=== PATIENT | male | born 1960 | race Caucasian/White ===

== ENCOUNTER 2018-06-08 11:15 | Outpatient (RCR) | payer OTHER, SELFPAY ==
--- NOTE | 2018-04-13 16:39 | PT.OIE ---
Current Diagnoses Low back pain (04/13/18) Abnormal posture (04/13/18) Weakness (04/13/18) Provider Visit Care Team Role Provider Type Tushar Luz MD Family Provider Non-Staff Primary Care Provider Specialty: Medical Address: [address] [place] [address], [address], [place], [address] Fax: Email: Rui Bowens MD Attending Provider Non-Staff Specialty: Family Practice Address: [address] [place] [address], [phone] Email: Physical Therapy Initial Evaluation PT-OP-A Visit Information Start: 04/13/18 07:28 Freq: Status: Active Protocol: Document 04/13/18 09:05 [facility] (Rec: 04/13/18 09:56 [facility] [id number]) Out-Patient Physical Therapy Visit Information Visit Information Visit Type Initial Evaluation Visit Note 6 visits Visit Start Time 09:05 Visit Stop Time 10:05 Total Visit Minutes 60 Visit Number 1/6 Number of ENTRY LEVEL ELECTRICAL ENGINEER Visits 0 PT-OP-B Current Condition Start: 04/13/18 07:28 Freq: Status: Active Protocol: Document 04/13/18 09:05 [facility] (Rec: 04/13/18 09:56 [facility] [id number]) Current Condition History of Current Condition Onset Date August Current Complaints LBP History of Current Condition Pt reports L SI pain that started when fishing in August. 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 He has history of LBP. Treatment Goals Patient/Caregiver Goals Wants to try snowboarding PT-OP-C Subjective Start: 04/13/18 07:28 Freq: Status: Active Protocol: Document 04/13/18 09:05 [facility] (Rec: 04/13/18 09:56 [facility] [id number]) Patient Questionnaires Oswestry Low Back Index Oswestry Score 44 Oswestry Impairment 40 to 59% Impaired (Score 40- 59) OP-PT Pain Assessment Location back Pain Location Details L SI Intensity 6 Scale Used Numeric (1 - 10) Description- Other irritating Other Pain Aggravating Factors roll over, turning certain ways, bending over and standing back up Other Pain Alleviating Factors shotgun & pelvis alignment exercise PT-OP-F Manual Assessment Start: 04/13/18 07:28 Freq: Status: Active Protocol: Document 04/13/18 09:05 [facility] (Rec: 04/13/18 09:56 [facility] [id number]) Manual Assessments Joint Mobility Assessment Joint Mobility Assessment elevated L & equal trochanters PT-OP-G Mobility & Gait Start: 04/13/18 07:28 Freq: Status: Active Protocol: Document 04/13/18 09:05 [facility] (Rec: 04/13/18 09:56 [facility] [id number]) OP Gait Assessment Comments Gait Comments leg walker with dec pelvis motion PT-OP-J Posture/Palpation/Skin Start: 04/13/18 07:28 Freq: Status: Active Protocol: Document 04/13/18 09:05 [facility] (Rec: 04/13/18 09:56 [facility] [id number]) Posture Evaluation Shanice Postural Classification System Shanice Postural Classifications Vertical/Posterior Vertebral Compression Test 1 Elbow Flexion Test 4 Lumbar Protective Mechanism Left AP 1 Lumbar Protective Mechanism Right AP 1 Lumbar Protective Mechanism Left PA 4 Lumbar Protective Mechanism Right PA 2 Leg Swing Left Hard End Feel Pain Leg Swing Right WNL PT-OP-K Range of Motion Start: 04/13/18 07:28 Freq: Status: Active Protocol: Document 04/13/18 09:05 [facility] (Rec: 04/13/18 09:56 [facility] [id number]) Lumbar Spine Range of Motion Lumbar Spine Active Degrees Flexion 40 Extension 30 Lateral Flexion Left 25 Lateral Flexion Right 22 Comments pain with SB PT-OP-L Special Tests Start: 04/13/18 07:28 Freq: Status: Active Protocol: Document 04/13/18 09:05 [facility] (Rec: 04/13/18 09:56 [facility] [id number]) Special Tests Lumbar Spine Special Tests Other- 1 Test Results leg length Comments supine equal; seated RLE longer Straight Leg Raise Test Results postive L; R neg PT-OP-M Strength Start: 04/13/18 07:28 Freq: Status: Active Protocol: Document 04/13/18 09:05 [facility] (Rec: 04/13/18 09:56 [facility] [id number]) Hip Strength Hip Manual Muscle Testing Right Flexion (L2) 5 Normal Extension (S1) 5 Normal Abduction 5 Normal External Rotation 5 Normal Internal Rotation 5 Normal Comments pain with ext Left Flexion (L2) 5 Normal Extension (S1) 5 Normal Adduction 5 Normal External Rotation 5 Normal Internal Rotation 5 Normal Comments pain IR & ext PT-OP-Q Treatments Start: 04/13/18 07:28 Freq: Status: Active Protocol: Document 04/13/18 09:05 [facility] (Rec: 04/13/18 09:56 [facility] [id number]) Therapeutic Exercises Supine Exercises abdominal exercises Supine Exercise Name abdominal series: flex & diagonal Side bilateral Standing Exercises HS stretch Standing Exercise Name on chair Side bilateral PT-OP-R Modalities Start: 04/13/18 07:28 Freq: Status: Active Protocol: Document 04/13/18 09:05 [facility] (Rec: 04/13/18 09:57 [facility] [id number]) Hot Pack/Cold Pack Treatment lumbar Location lumbar Patient Position Hooklying Treatment Duration (minutes) 15 PT-OP-T Assessment and Plan Start: 04/13/18 07:28 Freq: Status: Active Protocol: Document 04/13/18 09:05 [facility] (Rec: 04/13/18 16:38 [facility] [id number]) Physical Therapy Assessment Rehab Potential Rehabilitation Potential Good Evaluation Complexity Number of Personal Factors/Comorbidities 1-2 Number of Body Systems Impaired 4 or More Clinical Presentation at Evaluation Stable Impairments Impairments Activity Tolerance Balance Functional Activities Functional Mobility Gait Pain Posture ROM Soft Tissue Mobility Strength Goals mobility Impairment mobility Short Term Goal (STG) Pt will be able to do bed mobility without pain and sleep without pain. STG Duration 05/14/18 [facility] Goal (LTG) Pt will be able to ambulate without inc pain with appropriate pelvis motion. LTG Duration 06/14/18 pain Impairment pain Short Term Goal (STG) Pt will report pain about 3/10 on average. STG Duration 05/14/18 [facility] Goal (LTG) Pt will report no more than 1/ 10 pain with all typical activities. LTG Duration 06/14/18 posture Impairment posture Short Term Goal (STG) Pt will present with good posture without cueing STG Duration 05/14/18 [facility] Goal (LTG) Pt will score 5/5 on EFT, VCT & LPM in order to demonstrate improved core stability. LTG Duration 06/14/18 Assessment Summary Assessment Pt presents with L SI pain likely due to repetive rotation that is required when he is fishing. Pt has impaired posture & SI dysfunction with dec core control and would benefit from skilled PT to improve his postural stability and strength. Physical Therapy Plan Frequency and Duration Frequency of Treatment 2x/Week Duration of Treatment 2 months Plan of Care Start Date 04/13/18 Plan of Care End Date 06/14/18 Therapeutic Interventions Therapeutic Interventions Aquatic Therapy Balance Training Gait Training Home Exercise Program Joint Mobilizations Manual Therapy Neuromuscular Re-education Patient/Caregiver Education Self-Care/Home Management Soft Tissue Mobilization Taping Therapeutic Activities Therapeutic Exercises Modalities Cold Pack/Ice Massage Electric Stimulation Hot Packs Traction- Mechanical Ultrasound Next Visit Focus/Plan Next Note Type Treatment Note Next Visit Plan hip, sacrum & innominate mobilizations, advance core
--- NOTE | 2018-04-13 16:39 | PT.OPPOC ---
Current Diagnoses Low back pain (04/13/18) Abnormal posture (04/13/18) Weakness (04/13/18) Provider Visit Care Team Role Provider Type Tushar Luz MD Family Provider Non-Staff Primary Care Provider Specialty: Medical Address: [address] [place], [place] [address], [place], [address] Fax: Email: Rui Bowens MD Attending Provider Non-Staff Specialty: Family Practice Address: [address] [place] [address], [phone] Email: Plan Of Care PT-OP-T Assessment and Plan Start: 04/13/18 07:28 Freq: Status: Active Protocol: Document 04/13/18 09:05 [facility] (Rec: 04/13/18 16:38 [facility] [id number]) Physical Therapy Assessment Rehab Potential Rehabilitation Potential Good Evaluation Complexity Number of Personal Factors/Comorbidities 1-2 Number of Body Systems Impaired 4 or More Clinical Presentation at Evaluation Stable Impairments Impairments Activity Tolerance Balance Functional Activities Functional Mobility Gait Pain Posture ROM Soft Tissue Mobility Strength Goals mobility Impairment mobility Short Term Goal (STG) Pt will be able to do bed mobility without pain and sleep without pain. STG Duration 05/14/18 Coal Trimmer Machine Operator Goal (LTG) Pt will be able to ambulate without inc pain with appropriate pelvis motion. LTG Duration 06/14/18 pain Impairment pain Short Term Goal (STG) Pt will report pain about 3/10 on average. STG Duration 05/14/18 [facility] Goal (LTG) Pt will report no more than 1/ 10 pain with all typical activities. LTG Duration 06/14/18 posture Impairment posture Short Term Goal (STG) Pt will present with good posture without cueing STG Duration 05/14/18 [facility] Goal (LTG) Pt will score 5/5 on EFT, VCT & LPM in order to demonstrate improved core stability. LTG Duration 06/14/18 Assessment Summary Assessment Pt presents with L SI pain likely due to repetive rotation that is required when he is fishing. Pt has impaired posture & SI dysfunction with dec core control and would benefit from skilled PT to improve his postural stability and strength. Physical Therapy Plan Frequency and Duration Frequency of Treatment 2x/Week Duration of Treatment 2 months Plan of Care Start Date 04/13/18 Plan of Care End Date 06/14/18 Therapeutic Interventions Therapeutic Interventions Aquatic Therapy Balance Training Gait Training Home Exercise Program Joint Mobilizations Manual Therapy Neuromuscular Re-education Patient/Caregiver Education Self-Care/Home Management Soft Tissue Mobilization Taping Therapeutic Activities Therapeutic Exercises Modalities Cold Pack/Ice Massage Electric Stimulation Hot Packs Traction- Mechanical Ultrasound Next Visit Focus/Plan Next Note Type Treatment Note Next Visit Plan hip, sacrum & innominate mobilizations, advance core Plan of Care Dates Plan of Care Start Date 04/13/18 Plan of Care End Date 06/14/18 Please Sign and Return: I have reviewed this Plan of Care and certify that the skilled therapy services above are required to meet the patient?s needs. Physician Signature Date Printed Name and Credentials Clinical Instructor Signature Printed Name and Credentials
--- NOTE | 2018-04-19 14:26 | PT.OTN ---
Physical Therapy Treatment Note PT-OP-A Visit Information Start: 04/13/18 07:28 Freq: Status: Active Protocol: Document 04/19/18 14:09 [facility] (Rec: 04/19/18 14:26 [facility] [id number]) Out-Patient Physical Therapy Visit Information Visit Information Visit Type Treatment Note Visit Note 6 visits allowed Visit Start Time 10:30 Visit Stop Time 11:15 Total Visit Minutes 45 Visit Number 2/6 Number of LOADMASTER Visits 0 PT-OP-B Current Condition Start: 04/13/18 07:28 Freq: Status: Active Protocol: Document 04/13/18 09:05 [facility] (Rec: 04/13/18 09:56 [facility] [id number]) Current Condition History of Current Condition Onset Date August Current Complaints LBP History of Current Condition Pt reports L SI pain that started when fishing in August. 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 He has history of LBP. Treatment Goals Patient/Caregiver Goals Wants to try snowboarding PT-OP-C Subjective Start: 04/13/18 07:28 Freq: Status: Active Protocol: Document 04/19/18 14:09 [facility] (Rec: 04/19/18 14:26 [facility] [id number]) OP-PT Subjective Patient Comments Patient Comments Pt reports he was doing the diagonal abdominal series exercises PT-OP-F Manual Assessment Start: 04/13/18 07:28 Freq: Status: Active Protocol: Document 04/13/18 09:05 [facility] (Rec: 04/13/18 09:56 [facility] [id number]) Manual Assessments Joint Mobility Assessment Joint Mobility Assessment elevated L & equal trochanters PT-OP-G Mobility & Gait Start: 04/13/18 07:28 Freq: Status: Active Protocol: Document 04/13/18 09:05 [facility] (Rec: 04/13/18 09:56 [facility] [id number]) OP Gait Assessment Comments Gait Comments leg walker with dec pelvis motion PT-OP-J Posture/Palpation/Skin Start: 04/13/18 07:28 Freq: Status: Active Protocol: Document 04/13/18 09:05 [facility] (Rec: 04/13/18 09:56 [facility] [id number]) Posture Evaluation Shanice Postural Classification System Shanice Postural Classifications Vertical/Posterior Vertebral Compression Test 1 Elbow Flexion Test 4 Lumbar Protective Mechanism Left AP 1 Lumbar Protective Mechanism Right AP 1 Lumbar Protective Mechanism Left PA 4 Lumbar Protective Mechanism Right PA 2 Leg Swing Left Hard End Feel Pain Leg Swing Right WNL PT-OP-K Range of Motion Start: 04/13/18 07:28 Freq: Status: Active Protocol: Document 04/13/18 09:05 [facility] (Rec: 04/13/18 09:56 [facility] [id number]) Lumbar Spine Range of Motion Lumbar Spine Active Degrees Flexion 40 Extension 30 Lateral Flexion Left 25 Lateral Flexion Right 22 Comments pain with SB PT-OP-L Special Tests Start: 04/13/18 07:28 Freq: Status: Active Protocol: Document 04/13/18 09:05 [facility] (Rec: 04/13/18 09:56 [facility] [id number]) Special Tests Lumbar Spine Special Tests Other- 1 Test Results leg length Comments supine equal; seated RLE longer Straight Leg Raise Test Results postive L; R neg PT-OP-M Strength Start: 04/13/18 07:28 Freq: Status: Active Protocol: Document 04/13/18 09:05 [facility] (Rec: 04/13/18 09:56 [facility] [id number]) Hip Strength Hip Manual Muscle Testing Right Flexion (L2) 5 Normal Extension (S1) 5 Normal Abduction 5 Normal External Rotation 5 Normal Internal Rotation 5 Normal Comments pain with ext Left Flexion (L2) 5 Normal Extension (S1) 5 Normal Adduction 5 Normal External Rotation 5 Normal Internal Rotation 5 Normal Comments pain IR & ext PT-OP-Q Treatments Start: 04/13/18 07:28 Freq: Status: Active Protocol: Document 04/19/18 14:09 [facility] (Rec: 04/19/18 14:26 [facility] [id number]) Therapeutic Exercises Supine Exercises alt marching Supine Exercise Name alt marching with focus on core stabilization Reps/Minutes 10 abdominal exercises Supine Exercise Name abdominal series: flex & diagonal Side bilateral Prone Exercises resisted ER & IR Prone Exercise Name ER & IR Resistance L1 Reps/Minutes 10 Manual Therapy Treatment Joint Mobilizations innominate Joint innominate Direction caudal L FM & L Flex FM sacrum Joint sacrum Direction UPA R FM hip Joint hip Direction on axis ER & IR & inf FM Comments neuro re edu at end range after PT-OP-R Modalities Start: 04/13/18 07:28 Freq: Status: Active Protocol: Document 04/13/18 09:05 [facility] (Rec: 04/13/18 09:57 [facility] [id number]) Hot Pack/Cold Pack Treatment lumbar Location lumbar Patient Position Hooklying Treatment Duration (minutes) 15 PT-OP-T Assessment and Plan Start: 04/13/18 07:28 Freq: Status: Active Protocol: Document 04/19/18 14:09 [facility] (Rec: 04/19/18 14:26 [facility] [id number]) Physical Therapy Assessment Goals mobility Impairment mobility Short Term Goal (STG) Pt will be able to do bed mobility without pain and sleep without pain. 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 LTG Duration 06/14/18 pain Impairment pain Short Term Goal (STG) Pt will report pain about 3/10 on average. STG Duration 05/14/18 [facility] Goal (LTG) Pt will report no more than 1/ 10 pain with all typical activities. LTG Duration 06/14/18 posture Impairment posture Short Term Goal (STG) Pt will present with good posture without cueing STG Duration 05/14/18 [facility] Goal (LTG) Pt will score 5/5 on EFT, VCT & LPM in order to demonstrate improved core stability. LTG Duration 06/14/18 Assessment Summary Assessment Pt had improved hip motion after treatment. He required cueing to get good core stability and proprioception of lumbar spine with supine exercises. He had difficulty maintaining lumbar neutral. Physical Therapy Plan Frequency and Duration Frequency of Treatment 2x/Week Duration of Treatment 2 months Plan of Care Start Date 04/13/18 Plan of Care End Date 06/14/18 Next Visit Focus/Plan Next Note Type Treatment Note Next Visit Plan innominate mobs, PNF, advance core
--- NOTE | 2018-05-11 12:04 | PT.OTN ---
Current Diagnoses Pain in left arm (05/11/18) Physical Therapy Treatment Note PT-OP-A Visit Information Start: 04/13/18 07:28 Freq: Status: Active Protocol: Document 05/11/18 11:58 [facility] (Rec: 05/11/18 12:04 [facility] [id number]) Out-Patient Physical Therapy Visit Information Visit Information Visit Type Treatment Note Visit Note 6 visits allowed Visit Start Time 08:15 Visit Stop Time 09:00 Total Visit Minutes 45 Visit Number 3/6 Number of PULMONOLOGY PHYSICIAN Visits 0 PT-OP-B Current Condition Start: 04/13/18 07:28 Freq: Status: Active Protocol: Document 04/13/18 09:05 [facility] (Rec: 04/13/18 09:56 [facility] [id number]) Current Condition History of Current Condition Onset Date August Current Complaints LBP History of Current Condition Pt reports L SI pain that started when fishing in August. 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 He has history of LBP. Treatment Goals Patient/Caregiver Goals Wants to try snowboarding PT-OP-C Subjective Start: 04/13/18 07:28 Freq: Status: Active Protocol: Document 05/11/18 11:58 [facility] (Rec: 05/11/18 12:04 [facility] [id number]) OP-PT Subjective Patient Comments Patient Comments Pt reports some back pain with alt july. PT-OP-F Manual Assessment Start: 04/13/18 07:28 Freq: Status: Active Protocol: Document 04/13/18 09:05 [facility] (Rec: 04/13/18 09:56 [facility] [id number]) Manual Assessments Joint Mobility Assessment Joint Mobility Assessment elevated L & equal trochanters PT-OP-G Mobility & Gait Start: 04/13/18 07:28 Freq: Status: Active Protocol: Document 04/13/18 09:05 [facility] (Rec: 04/13/18 09:56 [facility] [id number]) OP Gait Assessment Comments Gait Comments leg walker with dec pelvis motion PT-OP-J Posture/Palpation/Skin Start: 04/13/18 07:28 Freq: Status: Active Protocol: Document 04/13/18 09:05 [facility] (Rec: 04/13/18 09:56 [facility] [id number]) Posture Evaluation Shanice Postural Classification System Shanice Postural Classifications Vertical/Posterior Vertebral Compression Test 1 Elbow Flexion Test 4 Lumbar Protective Mechanism Left AP 1 Lumbar Protective Mechanism Right AP 1 Lumbar Protective Mechanism Left PA 4 Lumbar Protective Mechanism Right PA 2 Leg Swing Left Hard End Feel Pain Leg Swing Right WNL PT-OP-K Range of Motion Start: 04/13/18 07:28 Freq: Status: Active Protocol: Document 04/13/18 09:05 [facility] (Rec: 04/13/18 09:56 [facility] [id number]) Lumbar Spine Range of Motion Lumbar Spine Active Degrees Flexion 40 Extension 30 Lateral Flexion Left 25 Lateral Flexion Right 22 Comments pain with SB PT-OP-L Special Tests Start: 04/13/18 07:28 Freq: Status: Active Protocol: Document 04/13/18 09:05 [facility] (Rec: 04/13/18 09:56 [facility] [id number]) Special Tests Lumbar Spine Special Tests Other- 1 Test Results leg length Comments supine equal; seated RLE longer Straight Leg Raise Test Results postive L; R neg PT-OP-M Strength Start: 04/13/18 07:28 Freq: Status: Active Protocol: Document 04/13/18 09:05 [facility] (Rec: 04/13/18 09:56 [facility] [id number]) Hip Strength Hip Manual Muscle Testing Right Flexion (L2) 5 Normal Extension (S1) 5 Normal Abduction 5 Normal External Rotation 5 Normal Internal Rotation 5 Normal Comments pain with ext Left Flexion (L2) 5 Normal Extension (S1) 5 Normal Adduction 5 Normal External Rotation 5 Normal Internal Rotation 5 Normal Comments pain IR & ext PT-OP-Q Treatments Start: 04/13/18 07:28 Freq: Status: Active Protocol: Document 05/11/18 11:58 [facility] (Rec: 05/11/18 12:04 [facility] [id number]) Gym Equipment Therapeutic Ball seated marches Exercise Details seated marches progressed to alt arm lifts Reps/Duration 10 each Therapeutic Exercises Supine Exercises TAbdomininus Supine Exercise Name TABD w/focus on breathing dying bugs Supine Exercise Name dying bugs with focus on core brace Reps/Minutes 10 alt marching Supine Exercise Name alt marching with focus on core stabilization Reps/Minutes 10 Comments progressed ot knee ext Other Exercises quadruped hip ext Other Exercise Name hip ext progressed to bird dogs Reps/Minutes 10 each Comments focus on neutral back Manual Therapy Treatment Soft Tissue Mobilization QL Body Location QL Mobilization Type Rolling Comments w/c/r PNF PT-OP-R Modalities Start: 04/13/18 07:28 Freq: Status: Active Protocol: Document 04/13/18 09:05 [facility] (Rec: 04/13/18 09:57 [facility] [id number]) Hot Pack/Cold Pack Treatment lumbar Location lumbar Patient Position Hooklying Treatment Duration (minutes) 15 PT-OP-T Assessment and Plan Start: 04/13/18 07:28 Freq: Status: Active Protocol: Document 05/11/18 11:58 [facility] (Rec: 05/11/18 12:04 [facility] [id number]) Physical Therapy Assessment Goals mobility Impairment mobility Short Term Goal (STG) Pt will be able to do bed mobility without pain and sleep without pain. STG Duration 05/14/18 [facility] Goal (LTG) Pt will be able to ambulate without inc pain with appropriate pelvis motion. LTG Duration 06/14/18 pain Impairment pain Short Term Goal (STG) Pt will report pain about 3/10 on average. STG Duration 05/14/18 Senior Foreman Goal (LTG) Pt will report no more than 1/ 10 pain with all typical activities. LTG Duration 06/14/18 posture Impairment posture Short Term Goal (STG) Pt will present with good posture without cueing STG Duration 05/14/18 Senior Foreman Goal (LTG) Pt will score 5/5 on EFT, VCT & LPM in order to demonstrate improved core stability. LTG Duration 06/14/18 Assessment Summary Assessment Pt had dec pain with exercises with cueing for core contraction. He required cueing to do core bracing and breathing. He has overall QL tightness Physical Therapy Plan Frequency and Duration Frequency of Treatment 2x/Week Duration of Treatment 2 months Plan of Care Start Date 04/13/18 Plan of Care End Date 06/14/18 Next Visit Focus/Plan Next Note Type Treatment Note Next Visit Plan PNF & innominate mobility, PNF
--- NOTE | 2018-05-18 09:00 | PT.OTN ---
Current Diagnoses Pain in left arm (05/18/18) Physical Therapy Treatment Note PT-OP-A Visit Information Start: 04/13/18 07:28 Freq: Status: Active Protocol: Document 05/18/18 08:14 [facility] (Rec: 05/18/18 09:00 [facility] [id number]) Out-Patient Physical Therapy Visit Information Visit Information Visit Type Treatment Note Visit Note 6 visits allowed Visit Start Time 08:15 Visit Stop Time 09:00 Total Visit Minutes 45 Visit Number 4/6 Number of SUPERVISOR SHUTTLE PREPARATION Visits 0 PT-OP-B Current Condition Start: 04/13/18 07:28 Freq: Status: Active Protocol: Document 04/13/18 09:05 [facility] (Rec: 04/13/18 09:56 [facility] [id number]) Current Condition History of Current Condition Onset Date August Current Complaints LBP History of Current Condition Pt reports L SI pain that started when fishing in 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 He has history of LBP. Treatment Goals Patient/Caregiver Goals Wants to try snowboarding PT-OP-C Subjective Start: 04/13/18 07:28 Freq: Status: Active Protocol: Document 05/18/18 08:14 [facility] (Rec: 05/18/18 09:00 [facility] [id number]) OP-PT Subjective Patient Comments Patient Comments REports he has had some trouble not holding his breath when exercising PT-OP-F Manual Assessment Start: 04/13/18 07:28 Freq: Status: Active Protocol: Document 04/13/18 09:05 [facility] (Rec: 04/13/18 09:56 [facility] [id number]) Manual Assessments Joint Mobility Assessment Joint Mobility Assessment elevated L & equal trochanters PT-OP-G Mobility & Gait Start: 04/13/18 07:28 Freq: Status: Active Protocol: Document 04/13/18 09:05 [facility] (Rec: 04/13/18 09:56 [facility] [id number]) OP Gait Assessment Comments Gait Comments leg walker with dec pelvis motion PT-OP-J Posture/Palpation/Skin Start: 04/13/18 07:28 Freq: Status: Active Protocol: Document 04/13/18 09:05 [facility] (Rec: 04/13/18 09:56 [facility] [id number]) Posture Evaluation Shanice Postural Classification System Shanice Postural Classifications Vertical/Posterior Vertebral Compression Test 1 Elbow Flexion Test 4 Lumbar Protective Mechanism Left AP 1 Lumbar Protective Mechanism Right AP 1 Lumbar Protective Mechanism Left PA 4 Lumbar Protective Mechanism Right PA 2 Leg Swing Left Hard End Feel Pain Leg Swing Right WNL PT-OP-K Range of Motion Start: 04/13/18 07:28 Freq: Status: Active Protocol: Document 04/13/18 09:05 [facility] (Rec: 04/13/18 09:56 [facility] [id number]) Lumbar Spine Range of Motion Lumbar Spine Active Degrees Flexion 40 Extension 30 Lateral Flexion Left 25 Lateral Flexion Right 22 Comments pain with SB PT-OP-L Special Tests Start: 04/13/18 07:28 Freq: Status: Active Protocol: Document 04/13/18 09:05 [facility] (Rec: 04/13/18 09:56 [facility] [id number]) Special Tests Lumbar Spine Special Tests Other- 1 Test Results leg length Comments supine equal; seated RLE longer Straight Leg Raise Test Results postive L; R neg PT-OP-M Strength Start: 04/13/18 07:28 Freq: Status: Active Protocol: Document 04/13/18 09:05 [facility] (Rec: 04/13/18 09:56 [facility] [id number]) Hip Strength Hip Manual Muscle Testing Right Flexion (L2) 5 Normal Extension (S1) 5 Normal Abduction 5 Normal External Rotation 5 Normal Internal Rotation 5 Normal Comments pain with ext Left Flexion (L2) 5 Normal Extension (S1) 5 Normal Adduction 5 Normal External Rotation 5 Normal Internal Rotation 5 Normal Comments pain IR & ext PT-OP-Q Treatments Start: 04/13/18 07:28 Freq: Status: Active Protocol: Document 05/18/18 08:14 [facility] (Rec: 05/18/18 09:00 [facility] [id number]) Therapeutic Exercises Supine Exercises TAbdomininus Supine Exercise Name TABD w/focus on breathing dying bugs Supine Exercise Name dying bugs with focus on core brace Reps/Minutes 10 Prone Exercises plank Prone Exercise Name plank Reps/Minutes 30 sec resisted ER & IR Prone Exercise Name ER & IR Resistance L1 Reps/Minutes 5 Sidelying Exercises hip ext Sidelying Exercise Name vs wall Side left Reps/Minutes 3x 5sec hold Other Exercises quadruped hip ext Other Exercise Name hip ext progressed to bird dogs Reps/Minutes 10 each Comments focus on neutral back Manual Therapy Treatment Soft Tissue Mobilization QL Body Location QL Mobilization Type Rolling Comments w/c/r PNF Joint Mobilizations innominate Joint innominate Direction caudal L FM , IR & ER FM B, ext L FM sacrum Joint sacrum Direction UPA R FM hip Joint hip Direction on axis ER & IR & inf FM Comments neuro re edu at end range after PT-OP-R Modalities Start: 04/13/18 07:28 Freq: Status: Active Protocol: Document 04/13/18 09:05 [facility] (Rec: 04/13/18 09:57 [facility] [id number]) Hot Pack/Cold Pack Treatment lumbar Location lumbar Patient Position Hooklying Treatment Duration (minutes) 15 PT-OP-T Assessment and Plan Start: 04/13/18 07:28 Freq: Status: Active Protocol: Document 05/18/18 08:14 [facility] (Rec: 05/18/18 09:00 [facility] [id number]) Physical Therapy Assessment Goals mobility Impairment mobility Short Term Goal (STG) Pt will be able to do bed mobility without pain and sleep without pain. STG Duration 05/14/18 [facility] Goal (LTG) Pt will be able to ambulate without inc pain with appropriate pelvis motion. LTG Duration 06/14/18 pain Impairment pain Short Term Goal (STG) Pt will report pain about 3/10 on average. STG Duration 05/14/18 [facility]ci Goal (LTG) Pt will report no more than 1/ 10 pain with all typical activities. LTG Duration 06/14/18 posture Impairment posture Short Term Goal (STG) Pt will present with good posture without cueing STG Duration 05/14/18 Table Tender Goal (LTG) Pt will score 5/5 on EFT, VCT & LPM in order to demonstrate improved core stability. LTG Duration 06/14/18 Assessment Summary Assessment Pt improved with IR & ER with mobilizations. HE is improving with hip movement pattern with cont exercise. Physical Therapy Plan Frequency and Duration Frequency of Treatment 2x/Week Duration of Treatment 2 months Plan of Care Start Date 04/13/18 Plan of Care End Date 06/14/18 Next Visit Focus/Plan Next Note Type Treatment Note Next Visit Plan PNF; innominate flex & abd
--- NOTE | 2018-05-25 12:02 | PT.OTN ---
Current Diagnoses Pain in left arm (05/25/18) Physical Therapy Treatment Note PT-OP-A Visit Information Start: 04/13/18 07:28 Freq: Status: Active Protocol: Document 05/25/18 08:04 [facility] (Rec: 05/25/18 12:02 [facility] [id number]) Out-Patient Physical Therapy Visit Information Visit Information Visit Type Treatment Note Visit Note 6 visits allowed Visit Start Time 08:15 Visit Stop Time 09:00 Total Visit Minutes 45 Visit Number 5/6 Number of DRAPERY SEAMSTRESS Visits 0 PT-OP-B Current Condition Start: 04/13/18 07:28 Freq: Status: Active Protocol: Document 04/13/18 09:05 [facility] (Rec: 04/13/18 09:56 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 He has history of LBP. Treatment Goals Patient/Caregiver Goals Wants to try snowboarding PT-OP-C Subjective Start: 04/13/18 07:28 Freq: Status: Active Protocol: Document 05/25/18 08:04 [facility] (Rec: 05/25/18 12:02 [facility] [id number]) OP-PT Subjective Patient Comments Patient Comments Reports pain is no longer constant but still gets twinges with certain motions PT-OP-F Manual Assessment Start: 04/13/18 07:28 Freq: Status: Active Protocol: Document 04/13/18 09:05 [facility] (Rec: 04/13/18 09:56 [facility] [id number]) Manual Assessments Joint Mobility Assessment Joint Mobility Assessment elevated L & equal trochanters PT-OP-G Mobility & Gait Start: 04/13/18 07:28 Freq: Status: Active Protocol: Document 04/13/18 09:05 [facility] (Rec: 04/13/18 09:56 [facility] [id number]) OP Gait Assessment Comments Gait Comments leg walker with dec pelvis motion PT-OP-J Posture/Palpation/Skin Start: 04/13/18 07:28 Freq: Status: Active Protocol: Document 04/13/18 09:05 [facility] (Rec: 04/13/18 09:56 [facility] [id number]) Posture Evaluation Shanice Postural Classification System Shanice Postural Classifications Vertical/Posterior Vertebral Compression Test 1 Elbow Flexion Test 4 Lumbar Protective Mechanism Left AP 1 Lumbar Protective Mechanism Right AP 1 Lumbar Protective Mechanism Left PA 4 Lumbar Protective Mechanism Right PA 2 Leg Swing Left Hard End Feel Pain Leg Swing Right WNL PT-OP-K Range of Motion Start: 04/13/18 07:28 Freq: Status: Active Protocol: Document 04/13/18 09:05 [facility] (Rec: 04/13/18 09:56 [facility] [id number]) Lumbar Spine Range of Motion Lumbar Spine Active Degrees Flexion 40 Extension 30 Lateral Flexion Left 25 Lateral Flexion Right 22 Comments pain with SB PT-OP-L Special Tests Start: 04/13/18 07:28 Freq: Status: Active Protocol: Document 04/13/18 09:05 [facility] (Rec: 04/13/18 09:56 [facility] [id number]) Special Tests Lumbar Spine Special Tests Other- 1 Test Results leg length Comments supine equal; seated RLE longer Straight Leg Raise Test Results postive L; R neg PT-OP-M Strength Start: 04/13/18 07:28 Freq: Status: Active Protocol: Document 04/13/18 09:05 [facility] (Rec: 04/13/18 09:56 [facility] [id number]) Hip Strength Hip Manual Muscle Testing Right Flexion (L2) 5 Normal Extension (S1) 5 Normal Abduction 5 Normal External Rotation 5 Normal Internal Rotation 5 Normal Comments pain with ext Left Flexion (L2) 5 Normal Extension (S1) 5 Normal Adduction 5 Normal External Rotation 5 Normal Internal Rotation 5 Normal Comments pain IR & ext PT-OP-Q Treatments Start: 04/13/18 07:28 Freq: Status: Active Protocol: Document 05/25/18 08:04 [facility] (Rec: 05/25/18 12:02 [facility] [id number]) Therapeutic Exercises Supine Exercises LTR Supine Exercise Name feet down then feet up Side bilateral Reps/Minutes 5 Comments focus on core use Sidelying Exercises basking seal Sidelying Exercise Name basking seal Reps/Minutes 6 Standing Exercises gait press at wall Standing Exercise Name for ant elevation/post depression Side bilateral Reps/Minutes 2x10 sec holds Neuro Re-Education Treatment Other Activities post depression Details rhythmic initiation, isometric hold at end range to COI Reps/Duration L Comments progression into LLE ant elevation Details rhythmic initiation, isometric hold at end range to COI Reps/Duration L Self-Care/Home Management Treatment Education Other Education edu of pelvis motion for gait & core use PT-OP-R Modalities Start: 04/13/18 07:28 Freq: Status: Active Protocol: Document 04/13/18 09:05 [facility] (Rec: 04/13/18 09:57 [facility] [id number]) Hot Pack/Cold Pack Treatment lumbar Location lumbar Patient Position Hooklying Treatment Duration (minutes) 15 PT-OP-T Assessment and Plan Start: 04/13/18 07:28 Freq: Status: Active Protocol: Document 05/25/18 08:04 [facility] (Rec: 05/25/18 12:02 [facility] [id number]) Physical Therapy Assessment Goals mobility Impairment mobility Short Term Goal (STG) Pt will be able to do bed mobility without pain and sleep without pain. STG Duration 05/14/18 Administration Specialist Goal (LTG) Pt will be able to ambulate without inc pain with appropriate pelvis motion. LTG Duration 06/14/18 pain Impairment pain Short Term Goal (STG) Pt will report pain about 3/10 on average. STG Duration 05/14/18 Administration Specialist Goal (LTG) Pt will report no more than 1/ 10 pain with all typical activities. LTG Duration 06/14/18 posture Impairment posture Short Term Goal (STG) Pt will present with good posture without cueing STG Duration 05/14/18 Correction Goal (LTG) Pt will score 5/5 on EFT, VCT & LPM in order to demonstrate improved core stability. LTG Duration 06/14/18 Assessment Summary Assessment Pt had improved pelvis motion with treatment and improved core enagement. Pt reports feeling looser after treatement. Physical Therapy Plan Frequency and Duration Frequency of Treatment 2x/Week Duration of Treatment 2 months Plan of Care Start Date 04/13/18 Plan of Care End Date 06/14/18 Next Visit Focus/Plan Next Note Type Treatment Note Next Visit Plan step ups with resistance; review wall press; innominate mobs
--- NOTE | 2018-06-08 18:20 | PT.OTN ---
Current Diagnoses Pain in left arm (06/08/18) Physical Therapy Treatment Note PT-OP-A Visit Information Start: 04/13/18 07:28 Freq: Status: Active Protocol: Document 06/08/18 18:11 [facility] (Rec: 06/08/18 18:20 [facility] [id number]) Out-Patient Physical Therapy Visit Information Visit Information Visit Type Treatment Note Visit Note 6 visits allowed Visit Start Time 11:15 Visit Stop Time 12:05 Total Visit Minutes 50 Visit Number 6/6 Number of TROUT FARMER Visits 0 PT-OP-B Current Condition Start: 04/13/18 07:28 Freq: Status: Active Protocol: Document 04/13/18 09:05 [facility] (Rec: 04/13/18 09:56 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 He has history of LBP. Treatment Goals Patient/Caregiver Goals Wants to try snowboarding PT-OP-C Subjective Start: 04/13/18 07:28 Freq: Status: Active Protocol: Document 06/08/18 18:11 [facility] (Rec: 06/08/18 18:20 [facility] [id number]) OP-PT Subjective Patient Comments Patient Comments Pt reports last 3 days have been good. Patient Reported Progress Improving PT-OP-F Manual Assessment Start: 04/13/18 07:28 Freq: Status: Active Protocol: Document 04/13/18 09:05 [facility] (Rec: 04/13/18 09:56 [facility] [id number]) Manual Assessments Joint Mobility Assessment Joint Mobility Assessment elevated L & equal trochanters PT-OP-G Mobility & Gait Start: 04/13/18 07:28 Freq: Status: Active Protocol: Document 04/13/18 09:05 [facility] (Rec: 04/13/18 09:56 [facility] [id number]) OP Gait Assessment Comments Gait Comments leg walker with dec pelvis motion PT-OP-J Posture/Palpation/Skin Start: 04/13/18 07:28 Freq: Status: Active Protocol: Document 04/13/18 09:05 [facility] (Rec: 04/13/18 09:56 [facility] [id number]) Posture Evaluation Shanice Postural Classification System Shanice Postural Classifications Vertical/Posterior Vertebral Compression Test 1 Elbow Flexion Test 4 Lumbar Protective Mechanism Left AP 1 Lumbar Protective Mechanism Right AP 1 Lumbar Protective Mechanism Left PA 4 Lumbar Protective Mechanism Right PA 2 Leg Swing Left Hard End Feel Pain Leg Swing Right WNL PT-OP-K Range of Motion Start: 04/13/18 07:28 Freq: Status: Active Protocol: Document 04/13/18 09:05 [facility] (Rec: 04/13/18 09:56 [facility] [id number]) Lumbar Spine Range of Motion Lumbar Spine Active Degrees Flexion 40 Extension 30 Lateral Flexion Left 25 Lateral Flexion Right 22 Comments pain with SB PT-OP-L Special Tests Start: 04/13/18 07:28 Freq: Status: Active Protocol: Document 04/13/18 09:05 [facility] (Rec: 04/13/18 09:56 [facility] [id number]) Special Tests Lumbar Spine Special Tests Other- 1 Test Results leg length Comments supine equal; seated RLE longer Straight Leg Raise Test Results postive L; R neg PT-OP-M Strength Start: 04/13/18 07:28 Freq: Status: Active Protocol: Document 04/13/18 09:05 [facility] (Rec: 04/13/18 09:56 [facility] [id number]) Hip Strength Hip Manual Muscle Testing Right Flexion (L2) 5 Normal Extension (S1) 5 Normal Abduction 5 Normal External Rotation 5 Normal Internal Rotation 5 Normal Comments pain with ext Left Flexion (L2) 5 Normal Extension (S1) 5 Normal Adduction 5 Normal External Rotation 5 Normal Internal Rotation 5 Normal Comments pain IR & ext PT-OP-Q Treatments Start: 04/13/18 07:28 Freq: Status: Active Protocol: Document 06/08/18 18:11 [facility] (Rec: 06/08/18 18:20 [facility] [id number]) Therapeutic Exercises Standing Exercises wall posture Standing Exercise Name wall posture with 90/90 ER Other Exercises ROM Other Exercise Name ROM measured WNL without pain Comments flex strength abdominals 4+/5 and ext 4+/5 Manual Therapy Treatment Soft Tissue Mobilization QL Body Location QL Mobilization Type Rolling Body Position Prone Joint Mobilizations innominate Joint innominate Direction caudal L FM , flex FM hip Joint hip Direction inf FM L PT-OP-R Modalities Start: 04/13/18 07:28 Freq: Status: Active Protocol: Document 04/13/18 09:05 [facility] (Rec: 04/13/18 09:57 [facility] [id number]) Hot Pack/Cold Pack Treatment lumbar Location lumbar Patient Position Hooklying Treatment Duration (minutes) 15 PT-OP-T Assessment and Plan Start: 04/13/18 07:28 Freq: Status: Active Protocol: Document 06/08/18 18:11 [facility] (Rec: 06/08/18 18:20 [facility] [id number]) Physical Therapy Assessment Goals mobility Impairment mobility Short Term Goal (STG) Pt will be able to do bed mobility without pain and sleep without pain. STG Duration 05/14/18 Material Worker Goal (LTG) Pt will be able to ambulate without inc pain with appropriate pelvis motion. LTG Duration 06/14/18 pain Impairment pain Short Term Goal (STG) Pt will report pain about 3/10 on average. STG Duration 05/14/18 Skilled Nursing Goal (LTG) Pt will report no more than 1/ 10 pain with all typical activities. LTG Duration 06/14/18 posture Impairment posture Short Term Goal (STG) Pt will present with good posture without cueing STG Duration 05/14/18 Material Worker Goal (LTG) Pt will score 5/5 on EFT, VCT & LPM in order to demonstrate improved core stability. LTG Duration 06/14/18 Assessment Summary Assessment Pt is doing well with overall strength and is improving with functional ability, but cont to have pain with higher level tasks like high steps ups, turning of flexing against resistance which are applicable to his job. Physical Therapy Plan Frequency and Duration Frequency of Treatment 2x/Week Duration of Treatment 2 months Plan of Care Start Date 04/13/18 Plan of Care End Date 06/14/18 Next Visit Focus/Plan Next Note Type Discharge Summary Next Visit Plan step ups with resistance; review wall press; innominate mobs as needed
--- NOTE | 2018-08-15 09:36 | PT.OPDS ---
Current Diagnoses Pain in left arm (06/08/18) Provider Visit Care Team Role Provider Type Tushar Luz MD Family Provider Non-Staff Primary Care Provider Specialty: Medical Address: [address] [place] [address], [address], [place], [address] Fax: Email: Rui Bowens MD Attending Provider Non-Staff Specialty: Family Practice Address: [address] [place] [address], [phone] Email: Visit Number Visit Number 10/06 Discharge Summary PT-OP-B Current Condition Start: 04/13/18 07:28 Freq: Status: Active Protocol: Document 04/13/18 09:05 [facility] (Rec: 04/13/18 09:56 [facility] [id number]) Current Condition History of Current Condition Onset Date August Current Complaints LBP History of Current Condition Pt reports L SI pain that started when fishing in August. 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 He has history of LBP. Treatment Goals Patient/Caregiver Goals Wants to try snowboarding PT-OP-C Subjective Start: 04/13/18 07:28 Freq: Status: Active Protocol: Document 06/08/18 18:11 [facility] (Rec: 06/08/18 18:20 [facility] [id number]) OP-PT Subjective Patient Comments Patient Comments Pt reports last 3 days have been good. Patient Reported Progress Improving PT-OP-F Manual Assessment Start: 04/13/18 07:28 Freq: Status: Active Protocol: Document 04/13/18 09:05 [facility] (Rec: 04/13/18 09:56 [facility] [id number]) Manual Assessments Joint Mobility Assessment Joint Mobility Assessment elevated L & equal trochanters PT-OP-G Mobility & Gait Start: 04/13/18 07:28 Freq: Status: Active Protocol: Document 04/13/18 09:05 [facility] (Rec: 04/13/18 09:56 [facility] [id number]) OP Gait Assessment Comments Gait Comments leg walker with dec pelvis motion PT-OP-J Posture/Palpation/Skin Start: 04/13/18 07:28 Freq: Status: Active Protocol: Document 04/13/18 09:05 [facility] (Rec: 04/13/18 09:56 [facility] [id number]) Posture Evaluation [facility] Postural Classification System Shanice Postural Classifications Vertical/Posterior Vertebral Compression Test 1 Elbow Flexion Test 4 Lumbar Protective Mechanism Left AP 1 Lumbar Protective Mechanism Right AP 1 Lumbar Protective Mechanism Left PA 4 Lumbar Protective Mechanism Right PA 2 Leg Swing Left Hard End Feel Pain Leg Swing Right WNL PT-OP-K Range of Motion Start: 04/13/18 07:28 Freq: Status: Active Protocol: Document 04/13/18 09:05 [facility] (Rec: 04/13/18 09:56 [facility] [id number]) Lumbar Spine Range of Motion Lumbar Spine Active Degrees Flexion 40 Extension 30 Lateral Flexion Left 25 Lateral Flexion Right 22 Comments pain with SB PT-OP-L Special Tests Start: 04/13/18 07:28 Freq: Status: Active Protocol: Document 04/13/18 09:05 [facility] (Rec: 04/13/18 09:56 [facility] [id number]) Special Tests Lumbar Spine Special Tests Other- 1 Test Results leg length Comments supine equal; seated RLE longer Straight Leg Raise Test Results postive L; R neg PT-OP-M Strength Start: 04/13/18 07:28 Freq: Status: Active Protocol: Document 04/13/18 09:05 [facility] (Rec: 04/13/18 09:56 [facility] [id number]) Hip Strength Hip Manual Muscle Testing Right Flexion (L2) 5 Normal Extension (S1) 5 Normal Abduction 5 Normal External Rotation 5 Normal Internal Rotation 5 Normal Comments pain with ext Left Flexion (L2) 5 Normal Extension (S1) 5 Normal Adduction 5 Normal External Rotation 5 Normal Internal Rotation 5 Normal Comments pain IR & ext PT-OP-T Assessment and Plan Start: 04/13/18 07:28 Freq: Status: Active Protocol: Document 08/15/18 09:35 [facility] (Rec: 08/15/18 09:36 [facility] [id number]) Physical Therapy Assessment Assessment Summary Assessment Pt made good progress with strength, posture and pain over treatment. 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 Physical Therapy Plan Discharge Physical Therapy Discharge Reasons No Longer Attending PT Discharge Comments Pt left on fishing trip and was unable to complete last scheduled appointment. Pt will be out of town for months.
== END 2018-08-17 10:05 | disposition home or self-care (01) ==
LOC: PHYS 11:15
PROVIDERS: Family Provider Family Medicine; PCP Family Medicine; Visit Provider Family Medicine
DX: M79.602 Pain in left arm (principal)
CPT/HCPCS: 97110; 97112; 97140; 97161